=== PATIENT | female | born 1965 | race African-American/Black ===

== ENCOUNTER 2018-06-20 08:36 | Emergency (ER) | payer OTHER ==
[~2018-06-20] VITALS: Ht 160 cm; Wt 68.0 kg
[~2018-06-20 08:36] MED LIST: FERR160T5 PO
[2018-06-20 08:49] VITALS: BP 135/84
--- NOTE | 2018-06-20 09:00 | NUR ---
PATIENT PRESENTS TO ED WITH C/O CONGESTION AND CP.PT STATES I HAVE BEEN COUGHING FOR THREE DAYS;PAIN IS AGGRAVATED BY COUGHING.DENIES N/V; SKIN IS PINK/WARM/DRY; AAOX4 WITH EVEN AND STEADY GAIT; PATIENT STATES PAIN OF 8/10 AT THIS TIME; PATIENT POSITIONED FOR COMFORT; HOB ELEVATED; BEDRAILS UP X2; BED DOWN. ER MD MADE AWARE OF PT STATUS.
--- NOTE | 2018-06-20 09:14 | NUR ---
Patient being evaluated by physician at bedside.
[2018-06-20] MEDS ORDERED: CLINDAMYCIN 600 MG/4 ML VIAL IM ONE (09:20)
[2018-06-20] MEDS ORDERED: ALBUTEROL SULFATE/IPRATROPIU 3 ML SOL IH ONE (09:20)
[2018-06-20] MEDS ORDERED: DEXAMETHASONE 10 MG/ML VIAL IM ONE (09:20)
--- NOTE | 2018-06-20 09:37 | NUR ---
RT AT BEDSIDE.
[2018-06-20 09:52] VITALS: BP 138/68
--- NOTE | 2018-06-20 09:52 | NUR ---
Patient discharged with v/s stable. Written and verbal after care instructions given and explained. Patient alert, oriented and verbalized understanding of instructions. Ambulatory with steady gait. All questions addressed prior to discharge. ID band removed. Patient advised to follow up with PMD. Rx of PROMETHAZINE, PREDNISONE AND AZITHROMYCIN given. Patient educated on indication of medication including possible reaction and side effects. Opportunity to ask questions provided and answered.
== END 2018-06-20 09:52 | disposition home or self-care (01) ==
LOC: MED 08:36
DX: J01.90 Acute sinusitis, unspecified (principal); J40 Bronchitis, not specified as acute or chronic; Z86.2 Personal history of diseases of the blood and blood-forming organs and certain disorders involving the immune mechanism; Z88.8 Allergy status to other drugs, medicaments and biological substances; Z88.2 Allergy status to sulfonamides; Z79.899 Other long term (current) drug therapy
CPT/HCPCS: 94640; 96372; 99283; J1100; J3490; J7620